=== PATIENT | male | born 1965 | race Caucasian/White ===

== ENCOUNTER → 2020-05-14 | Outpatient (CLI) | payer BC | END | disposition home or self-care (01) | LOC: LAB 07:19 | PROVIDERS: ATTEND Radiology Diagnostic Radiology | DX: R06.02 Shortness of breath (principal); Z20.818 Contact with and (suspected) exposure to other bacterial communicable diseases; I25.10 Atherosclerotic heart disease of native coronary artery without angina pectoris | CPT/HCPCS: 71250; C9803; U0003 ==